=== PATIENT | female | born 1970 | race Caucasian/White ===

== ENCOUNTER → 2016-11-08 | Outpatient (CLI) | payer BC ==
[~2016-11-08] MED LIST: FOLI1TAB7 PO; IBUP-1050 PO; METH2.5T PO; MULTTAB58 PO; OMEP10CA2 PO
--- NOTE | 2016-11-08 16:30 | MAMMOGRAPHY REPORT ---
BILATERAL DIGITAL SCREENING MAMMOGRAM TOMOSYNTHESIS WITH CAD: 11/08/2016 CLINICAL HISTORY: Routine screening. Patient has no complaints. TECHNIQUE: Breast tomosynthesis in addition to standard 2D mammography was performed. Current study was also evaluated with a Computer Aided Detection (CAD) system. COMPARISON: Comparison is made to exam dated: 08/07/2015 mammogram - [facility]. BREAST COMPOSITION: There are scattered areas of fibroglandular density in both breasts. FINDINGS: No suspicious masses, calcifications, or areas of architectural distortion are noted in e ither breast. There has been no significant interval change compared to prior exams. Bilateral circ umscribed benign-appearing masses and patchy bilateral asymmetries are stable compared to the prior exam. IMPRESSION: ACR BI-RADS CATEGORY 2: BENIGN There is no mammographic evidence of malignancy. A 1 year screening mammogram is recommended. The p atient will receive written notification of the results. Approximately 10% of breast cancers are not detected with mammography. A negative mammographic repor t should not delay biopsy if a clinically suggestive mass is present. Roslyn White M.D. ah/:11/08/2016 15:32:46 Barrel Assembly Inspector: Lucy LUCIO(R)(M)(BD), [facility] letter sent: Normal 1/2 BI-RADS Code: ACR BI-RADS Category 2: Benign
== END | disposition home or self-care (01) ==
LOC: C.MAMM 10:03
PROVIDERS: ATTEND Family Medicine
DX: Z12.31 Encounter for screening mammogram for malignant neoplasm of breast (principal)

== ENCOUNTER → 2017-03-20 | Outpatient (CLI) | payer BC ==
[~2017-03-20] MED LIST changes: +OPTIRAY 320 IV PRN
--- NOTE | 2017-03-20 20:26 | DIAGNOSTIC IMAGING REPORT ---
ABDOMEN AND PELVIS CT WITH IV AND ORAL CONTRAST CT DOSE: 873.52 mGy.cm HISTORY: Lower abdominal pain. DIVERTICULITIS TECHNIQUE: Multiaxial CT images of the abdomen and pelvis were performed following the use of intravenous and oral contrast. A dose lowering technique was utilized adhering to the principles of ALARA. COMPARISON STUDY: Abdomen and pelvis CT 07/06/2012. FINDINGS: The lung bases are clear. No pneumoperitoneum. No pneumatosis. No fractures within the visualized osseous structures. Hepatic steatosis. Cholecystectomy. The spleen, adrenal glands, pancreas, and kidneys are unremarkable. A 1.9 cm uterine fibroid at the fundus. A few left ovarian cysts with the largest measuring 3.6 cm. Normal right ovary. Normal bladder. A few colonic diverticula. No bowel wall thickening or obstruction. Normal appendix. No retroperitoneal lymphadenopathy. Tiny fat-containing supraumbilical hernia. IMPRESSION: 1. No bowel wall thickening or obstruction. 2. Colonic diverticulosis. 3. Hepatic steatosis. 4. Normal appendix. 5. A few left ovarian cysts with the largest measuring 3.6 cm. Electronically signed by: Cedrick Galvin M.D. 03/20/2017 8:24 PM Dictated Date/Time: 03/20/2017 8:04 PM
== END | disposition home or self-care (01) ==
LOC: C.CTS 17:43
PROVIDERS: ATTEND Family Medicine
DX: R10.32 Left lower quadrant pain (principal); K57.30 Diverticulosis of large intestine without perforation or abscess without bleeding; K76.0 Fatty (change of) liver, not elsewhere classified; N83.202 Unspecified ovarian cyst, left side

== ENCOUNTER → 2017-10-13 | Outpatient (CLI) | payer BC ==
[~2017-10-13] MED LIST changes: -FOLI1TAB7 PO; +FOLI1TAB8 PO; -OPTIRAY 320 IV PRN
--- NOTE | 2017-10-13 08:55 | DIAGNOSTIC IMAGING REPORT ---
CT SCAN OF THE PARANASAL SINUSES CLINICAL HISTORY: Chronic sinusitis. COMPARISON STUDY: CT of the brain dated 04/08/2016. TECHNIQUE: High-resolution CT scan of the paranasal sinuses is performed. Images are reviewed in the axial, sagittal, and coronal planes. IV contrast was not administered for this examination. The examination is performed using the fusion protocol. A dose lowering technique was utilized adhering to the principles of ALARA. CT DOSE: 503.89 mGy.cm FINDINGS: Maxillary antra: Clear bilaterally. A thin bony septation is seen within the inferior right maxillary antrum. Anterior ethmoid sinuses: Clear. Posterior ethmoid sinuses: Clear. Sphenoid sinuses: Clear. Frontal sinuses: Clear. Ostiomeatal complexes: Patent bilaterally. Frontoethmoidal and sphenoethmoidal recesses: Patent bilaterally. Carotid arteries: The carotid arteries are covered and without septal attachments. Ethmoid roofs: There is asymmetric elevation of the right ethmoid roof as compared to the left. Nasal turbinates: Normal in appearance. Nasal septum: There is mild leftward deviation of the bony nasal septum. Optic nerves: Covered. Orbits: The bony orbits are intact. Orbital contents are normal in appearance. Calvarium: The imaged calvarium is normal in appearance Mastoid air cells: Well pneumatized. Brain parenchyma: Partially visualized brain parenchyma is within normal limits. IMPRESSION: There is no significant paranasal sinus disease. See above. Electronically signed by: Fahad Lanier M.D. 10/13/2017 8:54 AM Dictated Date/Time: 10/13/2017 8:51 AM
== END | disposition home or self-care (01) ==
LOC: C.CTS 08:34
DX: J32.9 Chronic sinusitis, unspecified (principal)